=== PATIENT | male | born 2000 | race Caucasian/White ===

== ENCOUNTER 2023-05-19 02:32 | Emergency (ER) | payer BC, SELFPAY ==
--- NOTE | ~2023-05-19 | CT_ITS ---
CT of the Abdomen and Pelvis: Indication: Abdominal pain Technique: 2.5 mm axial scans were obtained through the abdomen and pelvis following intravenous adm inistration of 100 cc of Omnipaque 350. Dose reduction technique was used on this scan by utilizing a utomated exposure control and iterative reconstruction technique. The dose-length product (DLP) was 1 86.73 mGy-cm. Findings: Scans through the lung bases demonstrate 4 mm right basilar pulmonary nodule (axial image 18). Calcified lingular granuloma present. The liver, spleen, pancreas, gallbladder, adrenals and kidneys are within normal limits. No evidence of aortic aneurysm. No lymphadenopathy. No bowel obstruction or bowel wall thickening. There is no evidence to suggest acute appendicitis. Images through the pelvis were performed. Urinary bladder unremarkable. No pelvic mass evident. No as cites. Impression: 4 mm right basilar pulmonary nodule. According to Fleischner Society criteria, for a low-risk patient , no further follow-up required. For a high-risk patient, consider 12 month follow-up CT. No other significant findings. Reviewed, dictated and finalized at [facility]. S MERCH[employer]ISING [employer]IST Impression: 4 mm right basilar pulmonary nodule. According to Fleischner Society criteria, for a low-risk patient, no further follow-up required. For a high-risk patient, consider 12 month follow-up CT. No other significant findings.
[2023-05-19] MEDS: SODIUM CHLORIDE 0.9% IV 1,000 ML 999 ML IV CONT (02:32)
[2023-05-19 02:35] VITALS: BP 105/79; PULSE 68; RESP 20; TEMP 36; O2SAT 100
[2023-05-19 03:10] LABS: Basophils Absolute Auto 0.07 K/mm3 (0.00-0.10); Basophils Percent Auto 1.3 % (0.0-1.0); Eosinophils Absolute Auto 0.03 K/mm3 (0.02-0.50); Eosinophils Percent Auto 0.5 % (1.0-6.0); Hematocrit 43.2 % (40.0-54.0); Hemoglobin 13.5 g/dL (14.0-18.0); Immature Granulocyte Absolute 0.01 K/mm3 (0.00-0.00); Immature Granulocyte Percent A 0.2 % (0.0-0.0); Lymphocytes Absolute Auto 1.65 K/mm3 (1.10-4.50); Lymphocytes Percent Auto 29.6 % (18.0-42.0); Mean Corpuscular HGB Conc 31.3 g/dL (32.0-36.0); Mean Corpuscular Hemoglobin 25.8 pg (27.0-31.0); Mean Corpuscular Volume 82.6 fL (78.0-102.0); Mean Platelet Volume 10.5 fl (8.7-11.0); Monocytes Absolute Auto 0.53 K/mm3 (0.10-0.90); Monocytes Percent Auto 9.5 % (2.0-11.0); Neutrophils Absolute Auto 3.3 K/mm3 (1.7-7.2); Neutrophils Percent Auto 58.9 % (50.0-70.0); Platelet Count Result 198 K/mm3 (150-420); Red Blood Count 5.23 M/mm3 (4.70-6.10); White Blood Count 5.6 K/mm3 (4.8-10.8)
[2023-05-19] MEDS: KETOROLAC 30 MG/ML VIAL (*BKC) IV PUSH (03:17)
--- NOTE | 2023-05-19 03:22 | PC.NURSE ---
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 patient update provided.
[2023-05-19 03:24] LABS: INR 1.2; Partial Thromboplastin Time 27.9 SEC (23.90-30.70); Prothrombin Time 12.6 Seconds (9.50-12.10)
[2023-05-19 03:28] LABS: Alanine Aminotransferase 58 U/L (16-63); Albumin Level 3.9 g/dL (3.4-5.0); Alkaline Phosphatase 38 U/L (46-116); Anion Gap 11 mmol/L (8-16); Aspartate Amino Transferase 27 U/L (15-37); Bilirubin,Total 0.6 mg/dL (0.00-1.00); Blood Urea Nitrogen 8 mg/dL (7-18); Calcium 8.6 mg/dL (8.5-10.1); Carbon Dioxide 27 mmol/L (21-32); Chloride 102 mmol/L (98-108); Estimated CRCL calculation 78 ml/min; Estimated Glomerular Filt Rate > 60; Glucose 73 mg/dL (70-99); Lipase 10 U/L (16-77); Magnesium 1.5 mg/dL (1.8-2.4); Osmolality Calculated 287 mOsm/kg (285-295); Potassium 3.4 mmol/L (3.5-5.1); Sodium 140 mmol/L (136-145); Total Protein 6.5 g/dL (6.4-8.2); Troponin I 5.2 ng/L (0.00-60.4)
[2023-05-19 03:32] LABS: CRP < 0.1 mg/dL (0.0-0.9); Lactic Acid Reflex 1.4 mmol/L (0.4-2.0)
[2023-05-19 04:14] LABS: Appearance Urine Clear (Clear); Bilirubin Urine 1+ (Negative); Blood Urine Negative (Negative); Color Urine Light Yellow (Yellow); Glucose Urine UA Negative (Negative); Ketones Urine 3+ (Negative); Leukocyte Esterase Ur Negative LEU/UL (Negative); Nitrate Urine Negative (Negative); Protein Urine Negative (Negative)
[2023-05-19 04:19] LABS: Add Urine Microscopic? YES; Bacteria Urine None seen /hpf; RBC Urine 0-2 /hpf (0-2); Squamous Epithelial Cell Urine None seen /hpf (Few); WBC Urine 0-3 /hpf (0-3)
--- NOTE | 2023-05-19 04:50 | ED.NAVMDI ---
HPI - Nausea/Vomiting/Diarrhea General Chief complaint: Nausea/Vomiting/Diarrhea Stated complaint: N/V/D Time Seen by Provider: 05/19/23 02:50 Source: patient Mode of arrival: ambulatory Limitations: no limitations History of Present Illness HPI Narrative: 23-year-old a history of depression, history of marijuana use presents via EMS with a ongoing episode of crampy abdominal pain nausea vomiting. Patient is afebrile there is no chest pain no shortness of breath pain in the abdomen is some crampy episodes of diarrhea with no dysuria no flank pain no hematuria. Patient has been having off and on nausea vomiting and has currently epigastric burning sensation. MD elicited complaint: nausea, vomiting and abdominal pain Onset (ago): week(s) Description of vomiting: watery Related Data Home Medications Medication Instructions Recorded Confirmed cyclobenzaprine 5 mg tablet 5 mg PO PRN PRN muscle spasms 05/19/23 05/19/23 diclofenac sodium 75 mg 75 mg PO BID PRN Muscle Pain 05/19/23 05/19/23 tablet,delayed release fluoxetine 20 mg tablet 20 mg PO DAILY 05/19/23 05/19/23 omeprazole 40 mg capsule,delayed 40 mg PO DAILY 05/19/23 05/19/23 release Allergies Allergy/AdvReac Type Severity Reaction Status Date / Time No Known Allergies Allergy Verified 05/19/23 03:17 Review of Systems Review of Systems: All systems reviewed & are unremarkable except as noted in HPI and below PMFSH Past Medical History Medical History Depression Exam Const: General: healthy appearing Nutritional Appearance: well nourished Orientation/consciousness: patient oriented x3 Limitations: no limitations Eyes: Conjunctivae: conjunctivae normal Chest: Chest palpation & inspection: normal inspection of the chest Resp: Effort & Inspection: normal respiratory effort Auscultation: clear to auscultation bilaterally Cardio: Rate: regular rate Rhythm: regular rhythm GI: GI Palp: Yes Soft to palpation and Yes Tenderness to palpation present (GI) Auscultation: normal bowel sounds : General: Yes bladder normal to palpation Back/Spine/Pelvis: Back: no CVA tenderness Skin: General skin exam: normal color Rashes: no rashes Wounds: no wounds Neuro: General: patient oriented x3 and moves all extremities Cranial nerves: Yes Nystagmus not present Psych: Mental Status: mental status grossly normal Affect: normal affect Course Course Emergency Course: patient received IV fluids the patient did receive Zofran that helped with his nausea EN route via EMS, CT scan was performed reviewed which showed no acute findings blood work did show mildly decreased magnesium and potassium levels otherwise UA was negative. Vital Signs Vital signs: Vital Signs Temperature 36.0 C L 05/19/23 02:35 Pulse Rate 68 05/19/23 02:35 Respiratory Rate 20 05/19/23 02:35 Blood Pressure 105/79 05/19/23 02:35 Pulse Oximetry 100 05/19/23 02:35 Oxygen Delivery Room Air 05/19/23 02:35 Temperature 36.0 C L 05/19/23 02:35 Pulse Rate 68 05/19/23 02:35 Respiratory Rate 20 05/19/23 02:35 Blood Pressure 105/79 05/19/23 02:35 Pulse Oximetry 100 05/19/23 02:35 Oxygen Delivery Room Air 05/19/23 02:35 MDM - Nausea/Vomiting/Diarrhea Lab Data 05/19/23 03:06 05/19/23 03:06 Labs: Lab Results 05/19/23 05/19/23 Range/Units 02:55 03:06 WBC 5.6 (4.8-10.8) K/mm3 RBC 5.23 (4.70-6.10) M/mm3 Hgb 13.5 L (14.0-18.0) g/dL Hct 43.2 (40.0-54.0) % MCV 82.6 (78.0-102.0) fL MCH 25.8 L (27.0-31.0) pg MCHC 31.3 L (32.0-36.0) g/dL RDW 14.0 (11.6-14.4) % Plt Count 198 (150-420) K/mm3 MPV 10.5 (8.7-11.0) fl Immature Gran % (Auto) 0.2 H (0.0-0.0) % Neut % (Auto) 58.9 (50.0-70.0) % Lymph % (Auto) 29.6 (18.0-42.0) % Brooke % (Auto) 9.5 (2.0-11.0) % Eos % (Auto) 0.5 L (1.0-6.0) % Baso % (Auto) 1
[2023-05-19 05:00] VITALS: BP 113/89; PULSE 65; RESP 16; TEMP 36.3; O2SAT 100
== END 2023-05-19 05:08 | disposition home or self-care (01) ==
PROVIDERS: Emergency Provider Emergency Medicine
DX: R11.2 Nausea with vomiting, unspecified (principal); F12.90 Cannabis use, unspecified, uncomplicated; F32.A Depression, unspecified; Z79.899 Other long term (current) drug therapy; E86.0 Dehydration
CPT/HCPCS: 36415; 74177; 80053; 81001; 83605; 83690; 83735; 84484; 85025; 85610; 85730; 86140; 96361; 96374; 99284; J1885; J7030; Q9967